=== PATIENT | female | born 1990 | race American Indian/Alaskan Native ===

== ENCOUNTER 2017-01-08 20:40 | Emergency (ER) | payer MEDICAID, OTHER ==
[2017-01-08 21:45] VITALS: BP 142/79
[2017-01-08] MEDS ORDERED: TYLENOL PO ONE (21:45)
== END 2017-01-09 03:45 | disposition left against medical advice (07) ==
LOC: ED 20:40
DX: R51 Headache (principal); Z53.21 Procedure and treatment not carried out due to patient leaving prior to being seen by health care provider; V89.2XXA Person injured in unspecified motor-vehicle accident, traffic, initial encounter; Y92.488 Other paved roadways as the place of occurrence of the external cause; Y93.89 Activity, other specified; Y99.9 Unspecified external cause status

== ENCOUNTER 2017-01-10 10:47 | Emergency (ER) | payer OTHER, MEDICAID ==
[2017-01-10 11:08] VITALS: BP 118/75
[2017-01-10] MEDS ORDERED: ULTRAM PO ONE (12:54)
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
--- NOTE | 2017-01-10 14:04 | XRay Report ---
CERVICAL SPINE, 3 views: History: Neck pain. Findings: The vertebral bodies, disk spaces, posterior elements and prevertebral soft tissues are unremarkable. The dens is intact. No acute fracture or malalignment is identified. Impression: 1. No evidence for acute injury to the cervical spine.
--- NOTE | 2017-01-10 14:04 | XRay Report ---
LUMBOSACRAL SPINE, 3 VIEWS: History: Back pain Findings: The vertebral bodies, disk spaces and posterior elements are intact. No compression deformity or malalignment. The SI joints are symmetric and unremarkable. Impression: 1. No evidence for acute injury to the lumbar spine.
== END 2017-01-10 14:40 | disposition home or self-care (01) ==
LOC: ED 10:47
DX: S16.1XXA Strain of muscle, fascia and tendon at neck level, initial encounter (principal); S39.012A Strain of muscle, fascia and tendon of lower back, initial encounter; X58.XXXA Exposure to other specified factors, initial encounter; Y93.89 Activity, other specified; Y92.89 Other specified places as the place of occurrence of the external cause; Y99.8 Other external cause status
CPT/HCPCS: 72040; 72100; 99283

== ENCOUNTER 2018-03-01 00:41 | Emergency (ER) | payer BC, MEDICAID ==
[2018-03-01] MEDS ORDERED: NACL 0.9% 1000 ML 1,000 ML IV ONE (00:57)
[2018-03-01 01:12] VITALS: BP 126/77
[2018-03-01 01:49] LABS: Basophils # (Auto) 0.1 K/mm3 (0.0-0.1); Basophils % (Auto) 0.9 % (0.0-1.8); Eosinophils # (Auto) 0.1 K/mm3 (0.0-0.4); Eosinophils % (Auto) 0.6 % (0.0-4.3); Hematocrit 38.6 % (30.3-42.9); Hemoglobin 13.2 gm/dl (10.1-14.3); Lymphocytes # (Auto) 3.2 K/mm3 (1.2-5.4); Lymphocytes % (Auto) 27.1 % (13.4-35.0); Mean Corpuscular HGB Conc 34 % (30-34); Mean Corpuscular Hemoglobin 30 pg (28-32); Mean Corpuscular Volume 88 fl (79-97); Monocytes # (Auto) 0.8 K/mm3 (0.0-0.8); Monocytes % (Auto) 6.3 % (0.0-7.3); Platelet Count 282 K/mm3 (140-440); Red Blood Count 4.41 M/mm3 (3.65-5.03); Red Cell Distribution Width 14.8 % (13.2-15.2)
[2018-03-01 02:22] LABS: Alanine Aminotransferase 9 units/L (7-56); Albumin 4.3 g/dL (3.9-5); BUN/Creatinine Ratio 8; Blood Urea Nitrogen 5 mg/dL (7-17); Calcium 9.4 mg/dL (8.4-10.2); Hemolysis Index 17
[2018-03-01 02:50] LABS: Bilirubin,Urine NEG (Negative); Blood,Urine NEG (Negative); Color,Urine Yellow (Yellow); Mucus,Urine FEW /HPF; Protein,Urine <15 mg/dL mg/dL (Negative)
== END 2018-03-01 05:30 | disposition left against medical advice (07) ==
LOC: ED 00:41
DX: R10.2 Pelvic and perineal pain (principal); Z53.21 Procedure and treatment not carried out due to patient leaving prior to being seen by health care provider
CPT/HCPCS: 36415; 80053; 81001; 85025

== ENCOUNTER 2020-05-21 23:03 | Emergency (ER) | payer BC, MEDICAID ==
[2020-05-21 23:10] VITALS: BP 134/70
--- NOTE | 2020-05-21 23:29 | Emergency Department Report ---
ED General Adult HPI - General Chief complaint: Skin Rash Stated complaint: ITCHING EVERYWHERE Source: patient Mode of arrival: Ambulatory Limitations: No Limitations - History of Present Illness Initial comments: Patient is a 30-year-old -Citizen Of [place] female with a history of anxiety who presents to the ED with complaint of acute onset persistent diffuse erythematous maculopapular itchy rashes for the last 2 weeks. Patient states that the symptoms are especially gotten worse in the last 2 days such that she has not been able to sleep. Patient states that she is unsure of what the etiology of the rashes may be. Patient denies fever, chills, nausea, vomiting, chest pain, shortness of breath, dizziness, syncope, cough, sore throat, swollen lips or tongue, nasal and sinus congestion, abdominal pain, back pain, headache. MD Complaint: Diffuse itchy erythematous rashes x 2 weeks -: Sudden, week(s) (2) Radiation: non-radiation Severity scale (0 -10): 6 Quality: burning, other (itching) Consistency: constant Improves with: none Worsens with: none Associated Symptoms: denies other symptoms, rash (Diffuse itchy erythematous maculopapular rashes ). denies: confusion, chest pain, cough, diaphoresis, fever/chills, headaches, loss of appetite, malaise, nausea/vomiting, seizure, shortness of breath, syncope, weakness, other Treatments Prior to Arrival: none - Related Data Previous Rx's Medication Instructions Recorded Last Taken Type Azithromycin [Zithromax] 250 mg PO DAILY #6 tablet 03/10/16 Unknown Rx Chlorpheniramine/Phenylephrine 1 each PO DAILY #15 tablet 03/10/16 Unknown Rx [Ed-A-Hist 4 mg-10 mg Tablet] Cyclobenzaprine [Flexeril] 10 mg PO TID PRN #30 tablet 01/10/17 Unknown Rx Naproxen [Naprosyn TAB] 500 mg PO BID PRN #60 tablet 01/10/17 Unknown Rx Permethrin 5% [Acticin 5% CREAM] 1 applicatio TP ONCE #1 tube 05/21/20 Unknown Rx hydrOXYzine PAMOATE [Vistaril] 50 mg PO Q8HR PRN #30 capsule 05/21/20 Unknown Rx methylPREDNISolone [Medrol 4MG 4 mg PO DAILY #21 tab.ds.pk 05/21/20 Unknown Rx DOSEPAK (21 tabs)] Allergies Allergy/AdvReac Type Severity Reaction Status Date / Time Penicillins Allergy Hives Verified 06/12/18 14:55 ED Review of Systems ROS: Stated complaint: ITCHING EVERYWHERE Other details as noted in HPI Constitutional: denies: chills, fever Eyes: denies: eye pain, eye discharge, vision change ENT: denies: ear pain, throat pain Respiratory: denies: cough, shortness of breath, wheezing Cardiovascular: denies: chest pain, palpitations Endocrine: no symptoms reported Gastrointestinal: denies: abdominal pain, nausea, diarrhea Genitourinary: denies: urgency, dysuria, discharge Musculoskeletal: denies: back pain, joint swelling, arthralgia Skin: rash (Diffuse erythematous maculopapular rashes), change in color, pruritus. denies: lesions Neurological: denies: headache, weakness, paresthesias Psychiatric: denies: anxiety, depression Hematological/Lymphatic: denies: easy bleeding, easy bruising ED Past Medical Hx - Past Medical History Previous Medical History?: Yes Additional medical history: heart murmur, low bp, gastric bypas, anxiety - Surgical History Past Surgical History?: Yes Additional Surgical History: . TONSILLECTOMY - Social History Smoking Status: Current Every Day Smoker - Medications Home Medications: Home Medications Medication Instructions Recorded Confirmed Last Taken Type Azithromycin [Zithromax] 250 mg PO DAILY #6 tablet 03/10/16 Unknown Rx Chlorpheniramine/Phenylephrine 1 each PO DAILY #15 tablet 03/10/16 Unknown Rx [Ed-A-Hist 4 mg-10 mg Tablet] Cyclobenzaprine [Flexeril] 10 mg PO TID PRN #30 tablet 01/10/17 Unknown Rx Naproxen [Naprosyn TAB] 500 mg PO BID PRN #60 tablet 01/10/17 Unknown Rx Permethrin 5% [Acticin 5% CREAM] 1 applicatio TP ONCE #1 tube 05/21/20 Unknown Rx hydrOXYzine PAMOATE [Vistaril] 50 mg PO Q8HR PRN #30 capsule 05/21/20 Unknown Rx methylPREDNISolone [Medrol 4MG 4 mg PO DAILY #21 tab.ds.pk 05/21/20 Unknown Rx DOSEPAK (21 tabs)] ED Physical Exam - General Limitations: No Limitations General appearance: alert, in no apparent distress - Head Head exam: Present: atraumatic, normocephalic, normal inspection - Eye Eye exam: Present: normal appearance, PERRL, EOMI Pupils: Present: normal accommodation - ENT ENT exam: Present: normal exam, normal orophraynx, mucous membranes moist, TM's normal bilaterally, normal external ear exam - Neck Neck exam: Present: normal inspection, full ROM - Respiratory Respiratory exam: Present: normal lung sounds bilaterally. Absent: respiratory distress, wheezes, rales, rhonchi, stridor, chest wall tenderness, decreased breath sounds - Cardiovascular Cardiovascular Exam: Present: normal rhythm, tachycardia, normal heart sounds. Absent: systolic murmur, diastolic murmur, rubs, gallop - GI/Abdominal GI/Abdominal exam: Present: soft, normal bowel sounds. Absent: tenderness, guarding, rebound, hyperactive bowel sounds, hypoactive bowel sounds - Extremities Exam Extremities exam: Present: normal inspection, full ROM, normal capillary refill - Back Exam Back exam: Present: normal inspection, full ROM. Absent: tenderness, CVA tenderness (R), CVA tenderness (L), muscle spasm, paraspinal tenderness, vertebral tenderness - Neurological Exam Neurological exam: Present: alert, oriented X3, CN II-XII intact, normal gait, reflexes normal - Psychiatric Psychiatric exam: Present: normal affect, normal mood, anxious - Skin Skin exam: Present: warm, dry, intact, normal color, rash (Diffuse erythematous maculopapular rash), erythema, vesicles ED Course Vital Signs 05/21/20 23:07 Temperature 98.4 F Pulse Rate 100 H Respiratory 16 Rate Blood Pressure 134/70 O2 Sat by Pulse 100 Oximetry ED Medical Decision Making - Medical Decision Making This is a 30-year-old -Citizen Of [place] female with a history of anxiety who presents to the ED with complaint of acute onset persistent diffuse erythematous maculopapular itchy rashes for the last 2 weeks. Patient states that the symptoms are especially gotten worse in the last 2 days such that she has not been able to sleep. Patient states that she is unsure of what the etiology of the rashes may be. In the ED, patient is alert and oriented x3 and is not in distress but anxious in triage. Patient was discharged home on medications and advised to follow-up with her primary care physician in 7 to 10 days for reevaluation. Patient was advised to return to the ED immediately if symptoms get worse. - Differential Diagnosis Allergic reaction; irritant dermatitis; scabies; eczema; cellulitis Critical care attestation.: If time is entered above; I have spent that time in minutes in the direct care of this critically ill patient, excluding procedure time. ED Disposition Clinical Impression: Irritant dermatitis, Scabies infestation, Itching with irritation Disposition: DC-01 TO HOME OR SELFCARE Is pt being admited?: No Does the pt Need Aspirin: No Condition: Stable Instructions: Contact Dermatitis, [id number], Scabies, Adult Additional Instructions: Apply the medication as advised. Return to the ED immediately if symptoms get worse. Prescriptions: Permethrin 5% [Acticin 5% CREAM] 1 applicatio TP ONCE #1 tube methylPREDNISolone [Medrol 4MG DOSEPAK (21 tabs)] 4 mg PO DAILY #21 tab.ds.pk hydrOXYzine PAMOATE [Vistaril] 50 mg PO Q8HR PRN #30 capsule PRN Reason: Itching/anxiety Referrals: SUAD NAZARIO MD [Staff Physician] - 3-5 Days Time of Disposition: 23:29 Print Language: [id number]
== END 2020-05-21 23:43 | disposition home or self-care (01) ==
LOC: ED 23:03
DX: B86 Scabies (principal); L29.9 Pruritus, unspecified; L24.9 Irritant contact dermatitis, unspecified cause; F17.200 Nicotine dependence, unspecified, uncomplicated; Z90.89 Acquired absence of other organs; Z79.2 Long term (current) use of antibiotics; Z79.899 Other long term (current) drug therapy; Z88.0 Allergy status to penicillin
CPT/HCPCS: 99282